=== PATIENT | male | born 1965 | race Caucasian/White ===

== ENCOUNTER 2018-02-15 08:20 | Inpatient (IN) | payer BC ==
[~2018-02-15] VITALS: Ht 175.3 cm; Wt 97.5 kg
--- NOTE | ~2018-02-15 | PROC ---
[address] [address] PROCEDURE REPORT Name: RADHA GONZALEZ Room: [address] ADM IN .R.#: [id number] Admission: 02/15/18 Attend Phys: Monico Chery MD Discharge: Date of : 61 Report #: [id number] THIS REPORT FOR: //name// For GI report, please see the Provation report in Perceptive 7 content. By: 1053Medical Records Staff BRENDON /PATSY
[~2018-02-15 08:20] MED LIST: AZITHROMYCIN 2250 MG PO; CEFUROXIME500 MG PO; NORCO 5-325 TA1 EACH PO; QUINAPRIL 20 MG20 MG PO; QUINAPRIL-HCTZ1 EAC1 PO
[2018-02-15 08:34] VITALS: BP 152/84
[2018-02-15] MEDS ORDERED: LYRICA 75 MG CA75 MG PO (08:36)
[2018-02-15 08:54] LABS: URINE BILIRUBIN NEGATIVE (Negative); URINE BLOOD NEGATIVE (Negative); URINE CLARITY CLEAR; URINE COLOR YELLOW; URINE GLUCOSE-RANDOM NEGATIVE (Negative); URINE KETONES NEGATIVE (Negative); URINE LEUKOCYTES-REFLEX NEGATIVE (Negative); URINE NITRITE-REFLEX NEGATIVE (Negative); URINE PROTEIN NEGATIVE (Negative); URINE SPECIFIC GRAVITY 1.015 (1.005-1.030); URINE UROBILINOGEN 0.2 E.U./dl (0.2-1.0)
[2018-02-15 09:04] LABS: ABSOLUTE EOSINOPHILS 0.1 thou/uL (0.0-0.7); ABSOLUTE LYMPHOCYTES 1.1 thou/uL (0.8-5.3); ABSOLUTE MONOCYTES 0.4 thou/uL (0.0-1.2); ABSOLUTE NEUTROPHILS 3.8 thou/uL (1.6-8.1); BASOPHILS 0.3 %; EOSINOPHILS 1.6 %; HEMATOCRIT 44.1 % (42.0-52.0); LYMPHOCYTES 20.8 %; MCH 28.9 pg (26.0-34.0); MCHC 34.1 g/dL (28.0-37.0); MCV 84.7 fL (80.0-100.0); MONOCYTES 7.9 %; NUCLEATED RBCS 0 /100WBC; PLATELET COUNT* 161 thou/uL (150-400); POLYS 69.4 %; RDW-CV 14.8 % (10.5-14.5); WBC 5.4 thou/uL (4.0-11.0)
[2018-02-15 09:12] LABS: ANION GAP 9 mmol/L (7-16); BUN 18 mg/dL (7-18); CALCIUM 8.8 mg/dL (8.5-10.1); CHLORIDE 102 mmol/L (98-107); CO2 28 mmol/L (21-32); GLUCOSE 110 mg/dL (70-99); POTASSIUM 3.7 mmol/L (3.5-5.1); SODIUM 139 mmol/L (136-145)
[2018-02-15 09:19] LABS: ALKALINE PHOSPHATASE 94 U/L (46-116); LIPASE 381 U/L (73-393); SGOT 35 U/L (15-37); SGPT 63 U/L (30-65); TOTAL BILIRUBIN 0.4 mg/dL (<0.1-1.0); TOTAL PROTEIN 7.5 g/dL (6.4-8.2); TROPONIN-I LEVEL <0.06 ng/mL (<0.06)
[2018-02-15 10:43] LABS: APTT 20.9 Seconds (25.0-31.3); INR 1.1; PROTIME 10.7 Seconds (9.20-11.50)
[2018-02-15 11:01] VITALS: BP 122/80
[2018-02-15 11:21] VITALS: BP 152/57
--- NOTE | 2018-02-15 11:39 | NUR ---
PATIENT CAME TO THE FLOOR FROM THE ER IN STABLE CONDITION. SOME COMPLAINTS OF PAIN MOSTLY WITH MOVEMENT, SITTING UP. ADMISSION ASSESSMENT DONE, ROOM ORIENTATION DONE AND QUESTIONS ANSWERED FOR PATIENT AND . WILL CONTINUE TO MONITOR.
--- NOTE | 2018-02-15 15:00 | EKG ---
[place] [address] ELECTROCARDIOGRAM REPORT Name: RADHA GONZALEZ Room: [address] ADM IN [facility]#: [id number] Admission: 02/15/18 Attend Phys: Monico Chery MD Discharge: Date of : 61 Report #: [id number] THIS REPORT FOR: //name// [facility] ED Test Date: 2018-02-15 Test Time: 08:54:41 Pat Name: RADHA GONZALEZ Department: Room: [facility] Gender: Crane Operator Cab: Liliam DIALLO : 1965 Requested By: Benja Gomez Order Number: [id number] MD: Brent Shukla Measurements Intervals [place] Rate: 69 P: 22 [place]: 157 QRS: -5 QRSD: 87 T: 5 QT: 394 QTc: 422 Interpretive Statements Sinus rhythm Compared to ECG 02/10/2017 21:12:09 T-wave abnormality no longer present Left ventricular hypertrophy no longer present Electronically Signed On 02-15-2018 15:00:17 CDT by Brent Shukla [email or web address] <ELECTRONICALLY SIGNED> By: Brent Shukla MD, [facility] 02/15/18 1500 [phone] Brent Shukla MD, [facility] /EPI
[2018-02-15 16:03] VITALS: BP 148/63
--- NOTE | 2018-02-15 17:58 | NUR ---
PATIENT HAS BEEN ALERT AND ORIENTED TODAY VERY PLEASANT, UP AD EUGENIA IN ROOM. HAD EGD DONE TODAY AND TOLERATED WELL. VITAL SIGNS HAVE BEEN STABLE ON ROOM AIR, FAMILY HAS BEEN AT BEDSIDE TODAY. CALL LIGHT IS IN REACH WILL CONTINUE TO MONITOR.
[2018-02-15 20:40] VITALS: BP 124/72
[2018-02-16 04:30] LABS: ABSOLUTE EOSINOPHILS 0.1 thou/uL (0.0-0.7); ABSOLUTE LYMPHOCYTES 1.2 thou/uL (0.8-5.3); ABSOLUTE MONOCYTES 0.4 thou/uL (0.0-1.2); ABSOLUTE NEUTROPHILS 2.5 thou/uL (1.6-8.1); BASOPHILS 0.3 %; EOSINOPHILS 2.9 %; HEMATOCRIT 40.8 % (42.0-52.0); LYMPHOCYTES 27.9 %; MCH 29.1 pg (26.0-34.0); MCHC 34.3 g/dL (28.0-37.0); MCV 84.9 fL (80.0-100.0); MPV 7.8 fl. (7.2-11.1); NUCLEATED RBCS 0 /100WBC; PLATELET COUNT* 138 thou/uL (150-400); POLYS 59.9 %; RDW-CV 14.7 % (10.5-14.5); WBC 4.2 thou/uL (4.0-11.0)
[2018-02-16 05:01] LABS: CALCIUM 8.1 mg/dL (8.5-10.1); POTASSIUM 3.5 mmol/L (3.5-5.1)
--- NOTE | 2018-02-16 06:52 | NUR ---
PATIENT ALERT AND ORIENTED X 4. VITALS STABLE. RA. DENIES PAIN AND NAUSEA. FLUIDS INFUSING PER ORDER. SLEPT COMFORTABLY THROUGH THE NIGHT. DENIES ANY NEEDS. HOURLY ROUNDS. NURSING WILL CONTINUE TO MONITOR.
[2018-02-16 07:40] VITALS: BP 126/77
[2018-02-16] MEDS ORDERED: PROTONIX40 M1 PO (09:29)
[2018-02-16 09:31] VITALS: BP 126/77
[2018-02-16 13:52] VITALS: BP 126/77
--- NOTE | 2018-02-16 13:53 | NUR ---
PATIENT IS ALERT AND ORIENTED TODAY VERY PLEASANT. UP AD EUGENIA IN ROOM VITAL SIGNS STABLE ON ROOM AIR, NO COMPLAINTS OF ANY KIND. PATIENT TOERATED DIET WELL TODAY WITH NO COMPLAINTS. BEIG DISCHARGED TO HOME, DISCHARGE INSTRUCTIONS AND PRESCRIPTIONS GIVEN, QUESTIONS ANSWERED FOR PATIENT AND FAMILY. AMBULATED OUT WITH DAUGHTER TO HOME WITH BELONGINGS.
--- NOTE | 2018-02-22 10:06 | PATH ---
[address] [address] PATHOLOGY RPT PROCEDURE Name: RAGHU GONZALEZ Room: [address] IN M.R.#: [id number] Admission: 02/15/18 Date of : 61 Discharge: 02/16/18 Report #: [id number] Path Case #: [id number] [facility] Accession Number: [id number] . 01 Material submitted: . GASTRIC BIOPSY, GASTRITIS . 01 Clinical history: . Gastritis . 02 Diagnosis: Gastric biopsy: - Severe chronic and active gastritis with abundant Helicobacter pylori organisms, negative for granulomas and dysplasia. (FABIANO:jeanne; 02/17/2018) . Special stain: H. pylori immuno QMS/02/17/2018 . 02 Electronically signed: . Travis Lake MD, Pathologist NPI- [id number] . 01 Gross description: . Received in formalin labeled "Raghu Gonzalez, gastric BX," are five segments of power soft tissue measuring 0.6 x 0.5 x 0.3 cm in aggregate dimensions and ranging from 0.2 to 0.4 cm in maximum dimension. The specimen is submitted entirely in cassette A1. ([facility]; 02/16/2018) . XDC/XDC . 02 Pathologist provided ICD-10: K29.50, B96.81 . 02 CPT . 153231, B08098 Performed at: [address], [place] [id number] MD Anibal Castillo MD Phone: [phone] Performed at: 02 [facility] [address], [place], [place] [id number] MD Travis Lake MD Phone: [phone]
--- NOTE | 2018-02-23 12:32 | CON ---
[address] [address] CONSULTATION Name: RADHA GONZALEZ Room: [address]#: [id number] Admission: 02/15/18 Attend Phys: Monico Chery MD Discharge: 02/16/18 Date of : 61 Report #: [id number] THIS REPORT FOR: //name// CC: Monico Torresa Geovany Velazquez DATE OF SERVICE: 02/15/2018 REASON FOR CONSULT: Periumbilical pain and hematemesis. The patient also found to have anemia. HISTORY OF PRESENT ILLNESS: This is a 52-year-old male with history of right hemicolectomy due to a colon cancer, which was diagnosed a little over a year ago. The patient's most recent PET scan in October was negative. He currently complains of 4 days of abdominal pain, which is in the periumbilical region. He also believes that he had vomited blood. He denies hematochezia or melena. PAST MEDICAL HISTORY: Significant for: 1. History of colon cancer, status post right hemicolectomy. 2. Hypertension. 3. Anemia. 4. Neuropathy, associated with chemotherapy. ALLERGIES AND MEDICATIONS: Please refer to hospital [facility]. SOCIAL HISTORY: The patient is , lives at home. Denies tobacco or alcohol use. FAMILY HISTORY: Noncontributory. PHYSICAL EXAMINATION: VITAL SIGNS: Reveals normal vitals. LUNGS: Clear. CARDIOVASCULAR: Regular. ABDOMEN: Soft, tender to palpation in the periumbilical region. Bowel sounds are positive. NEUROLOGIC: The patient is alert, oriented x 3. LABORATORY DATA: Revealed sodium of 139, potassium 3.7, BUN is 18, creatinine 1.0. WBC is 5.4, hemoglobin is 15, platelet is 161. IMAGING: CT of abdomen and pelvis was obtained, which showed no acute finding. ASSESSMENT AND PLAN: The patient with history of colon cancer and negative PET scan in 10/2017. He presents with 4 days of severe [place] [address] CONSULTATION Name: RADHA GONZALEZ Room: [address]#: [id number] Admission: 02/15/18 Attend Phys: Monico Chery MD Discharge: 02/16/18 Date of : 61 Report #: [id number] hematemesis. We will perform an upper endoscopy to further evaluate his symptoms and history of upper gastrointestinal bleed. I will make further recommendation based on findings. The patient is agreeable with plan. <ELECTRONICALLY SIGNED> By: Nacho Mack MD 02/23/18 1232 1349 [id number] Mack MD /nt
== END 2018-02-16 13:50 | disposition home or self-care (01) | DRG 379 ==
LOC: M.ERS 08:20 → M.ORTHSURG 10:30 → M.TBA-ER 10:30 → M.ORTHSURG 11:06
PROVIDERS: Emergency Medicine Emergency Medical Services; ADMIT Internal Medicine
PROC: 0DB68ZX Excision of Stomach, Via Natural or Artificial Opening Endoscopic, Diagnostic (ICD-10-PCS; principal; 2018-02-15)
DX: K29.71 Gastritis, unspecified, with bleeding (principal); I10 Essential (primary) hypertension; E86.0 Dehydration; G62.9 Polyneuropathy, unspecified; R04.0 Epistaxis; Z85.038 Personal history of other malignant neoplasm of large intestine; Z92.21 Personal history of antineoplastic chemotherapy; Z80.0 Family history of malignant neoplasm of digestive organs; Z79.899 Other long term (current) drug therapy; Z90.49 Acquired absence of other specified parts of digestive tract; Z80.42 Family history of malignant neoplasm of prostate

== ENCOUNTER → 2018-03-17 | Outpatient (CLI) | payer BC ==
[~2018-03-17] MED LIST changes: +LYRICA 75 MG CA75 MG PO; +PROTONIX40 M1 PO
== END ==
LOC: M.LAB 04:37
DX: Z01.812 Encounter for preprocedural laboratory examination (principal)

== ENCOUNTER 2018-06-13 19:28 | Emergency (ER) | payer OTHER ==
[~2018-06-13] VITALS: Ht 175.3 cm; Wt 93.0 kg
[2018-06-13 19:45] LABS: URINE BILIRUBIN NEGATIVE (Negative); URINE BLOOD NEGATIVE (Negative); URINE CLARITY CLEAR; URINE COLOR YELLOW; URINE GLUCOSE-RANDOM NEGATIVE (Negative); URINE KETONES TRACE (Negative); URINE LEUKOCYTES-REFLEX NEGATIVE (Negative); URINE NITRITE-REFLEX NEGATIVE (Negative); URINE PROTEIN TRACE (Negative); URINE UROBILINOGEN 0.2 E.U./dl (0.2-1.0)
[2018-06-13 20:04] LABS: ABSOLUTE EOSINOPHILS 0.2 thou/uL (0.0-0.7); ABSOLUTE LYMPHOCYTES 1.6 thou/uL (0.8-5.3); ABSOLUTE MONOCYTES 0.6 thou/uL (0.0-1.2); ABSOLUTE NEUTROPHILS 3.4 thou/uL (1.6-8.1); BASOPHILS 0.5 %; EOSINOPHILS 2.9 %; HEMOGLOBIN 14.6 gm/dL (14.0-18.0); LYMPHOCYTES 27.3 %; MCH 29.8 pg (26.0-34.0); MCHC 33.9 g/dL (28.0-37.0); MCV 87.8 fL (80.0-100.0); MONOCYTES 9.8 %; MPV 7.7 fl. (7.2-11.1); NUCLEATED RBCS 0 /100WBC; PLATELET COUNT* 151 thou/uL (150-400); POLYS 59.5 %; RDW-CV 13.5 % (10.5-14.5); WBC 5.7 thou/uL (4.0-11.0)
[2018-06-13 20:13] LABS: CALCIUM 8.9 mg/dL (8.5-10.1); POTASSIUM 3.6 mmol/L (3.5-5.1)
[2018-06-13 20:17] LABS: ALBUMIN 3.8 g/dL (3.4-5.0); TOTAL BILIRUBIN 0.3 mg/dL (<0.1-1.0); TOTAL PROTEIN 6.9 g/dL (6.4-8.2)
[2018-06-13] MEDS ORDERED: BENTYL 20 MG TA20 M1 PO (21:10)
[2018-06-13 21:28] VITALS: BP 141/83
== END 2018-06-13 21:30 | disposition home or self-care (01) ==
LOC: M.ERS 19:28
PROVIDERS: Nurse Practitioner Family
DX: R10.33 Periumbilical pain (principal); I10 Essential (primary) hypertension; G62.9 Polyneuropathy, unspecified; Z85.038 Personal history of other malignant neoplasm of large intestine; Z86.2 Personal history of diseases of the blood and blood-forming organs and certain disorders involving the immune mechanism

== ENCOUNTER 2018-07-20 10:19 | Inpatient (IN) | payer OTHER ==
[~2018-07-20] VITALS: Ht 175.3 cm; Wt 95.3 kg
[~2018-07-20 10:19] MED LIST changes: +BENTYL 20 MG TA20 M1 PO
[2018-07-20 10:24] VITALS: BP 158/110
[2018-07-20] MEDS ORDERED: XIFAXAN550 M1 PO (10:26)
[2018-07-20] MEDS ORDERED: PROTONIX40 M1 PO (10:26)
[2018-07-20 11:45] LABS: ABSOLUTE EOSINOPHILS 0.2 thou/uL (0.0-0.7); ABSOLUTE MONOCYTES 0.4 thou/uL (0.0-1.2); ABSOLUTE NEUTROPHILS 3.1 thou/uL (1.6-8.1); BASOPHILS 0.5 %; EOSINOPHILS 4.7 %; HEMATOCRIT 42.8 % (42.0-52.0); LYMPHOCYTES 22.1 %; MCH 30.2 pg (26.0-34.0); MCHC 35.1 g/dL (28.0-37.0); MCV 86.2 fL (80.0-100.0); MONOCYTES 7.9 %; MPV 7.6 fl. (7.2-11.1); NUCLEATED RBCS 0 /100WBC; PLATELET COUNT* 147 thou/uL (150-400); POLYS 64.8 %; RBC 4.96 mil/uL (4.50-6.00); RDW-CV 12.8 % (10.5-14.5); WBC 4.7 thou/uL (4.0-11.0)
[2018-07-20 11:57] LABS: ANION GAP 8 mmol/L (7-16); BUN 16 mg/dL (7-18); CHLORIDE 101 mmol/L (98-107); CO2 29 mmol/L (21-32); CREATININE 0.8 mg/dL (0.6-1.3); GLUCOSE 98 mg/dL (70-99); POTASSIUM 3.7 mmol/L (3.5-5.1); SODIUM 138 mmol/L (136-145)
[2018-07-20 12:04] LABS: ALBUMIN 3.9 g/dL (3.4-5.0); ALKALINE PHOSPHATASE 98 U/L (46-116); SGOT 43 U/L (15-37); SGPT 85 U/L (30-65); TOTAL BILIRUBIN 0.7 mg/dL (<0.1-1.0); TOTAL PROTEIN 7.2 g/dL (6.4-8.2); TROPONIN-I LEVEL <0.06 ng/mL (<0.06)
[2018-07-20 16:37] VITALS: BP 123/76
--- NOTE | 2018-07-20 17:03 | EKG ---
[place] [address] ELECTROCARDIOGRAM REPORT Name: RADHA GONZALEZ Room: [address] ADM IN [facility]#: [id number] Admission: 07/20/18 Attend Phys: Lauren Erazo Discharge: Date of : 61 Report #: [id number] THIS REPORT FOR: //name// [facility] ED Test Date: 2018-07-20 Test Time: 11:37:07 Pat Name: RADHA GONZALEZ Department: Room: [facility] Gender: Medical Imaging Specialist: PIETRO : 1965 Requested By: Mamie Westbrook Order Number: [id number] MD: Pierre Maravilla Measurements Intervals [place] Rate: 65 P: 32 NM: 196 QRS: -13 QRSD: 93 T: 1 QT: 402 QTc: 418 Interpretive Statements Sinus rhythm Compared to ECG 02/15/2018 08:54:41 No significant changes Electronically Signed On 07-20-2018 17:03:07 MINING ENGINEER by Pierre Maravilla [email or web address] <ELECTRONICALLY SIGNED> By: Pierre Maravilla MD, [facility] 07/20/18 1703 1137 1137 Pierre Maravilla MD, FAC /EPI
[2018-07-20 18:00] VITALS: BP 123/81
--- NOTE | 2018-07-20 18:00 | NUR ---
PATIENT ARRIVED TO UNIT AT 1700. ALERT AND ORIENTED X4. UP AD EUGENIA IN ROOM. IV IS PATENT AND INFUSING. REQUESTING PAIN MEDICATION UPON ARRIVAL TO UNIT, ORDERS RECIEVED AND ADMINISTERED. DENIES NAUSEA. NPO AT THIS TIME. VSS ON ROOM AIR. PATIENT HAS BEEN ORIENTED TO ROOM. CALL LIGHT IS WITHIN REACH. NURSING WILL CONTINUE TO MONITOR.
[2018-07-20 20:09] LABS: ABSOLUTE EOSINOPHILS 0.3 thou/uL (0.0-0.7); ABSOLUTE LYMPHOCYTES 1.3 thou/uL (0.8-5.3); ABSOLUTE MONOCYTES 0.4 thou/uL (0.0-1.2); ABSOLUTE NEUTROPHILS 3.5 thou/uL (1.6-8.1); BASOPHILS 0.4 %; EOSINOPHILS 4.6 %; HEMATOCRIT 43.4 % (42.0-52.0); HEMOGLOBIN 15.2 gm/dL (14.0-18.0); LYMPHOCYTES 23.7 %; MCHC 34.9 g/dL (28.0-37.0); MCV 86.1 fL (80.0-100.0); MPV 7.6 fl. (7.2-11.1); NUCLEATED RBCS 0 /100WBC; PLATELET COUNT* 152 thou/uL (150-400); POLYS 63.3 %; RBC 5.05 mil/uL (4.50-6.00); RDW-CV 13.3 % (10.5-14.5); WBC 5.6 thou/uL (4.0-11.0)
[2018-07-20 22:27] VITALS: BP 131/79
[2018-07-21 04:41] LABS: ABSOLUTE EOSINOPHILS 0.2 thou/uL (0.0-0.7); ABSOLUTE LYMPHOCYTES 1.3 thou/uL (0.8-5.3); ABSOLUTE MONOCYTES 0.4 thou/uL (0.0-1.2); ABSOLUTE NEUTROPHILS 2.8 thou/uL (1.6-8.1); BASOPHILS 0.4 %; HEMATOCRIT 41.7 % (42.0-52.0); HEMOGLOBIN 14.5 gm/dL (14.0-18.0); LYMPHOCYTES 26.7 %; MCH 30.2 pg (26.0-34.0); MCHC 34.9 g/dL (28.0-37.0); MCV 86.6 fL (80.0-100.0); MONOCYTES 8.7 %; MPV 7.8 fl. (7.2-11.1); NUCLEATED RBCS 0 /100WBC; PLATELET COUNT* 139 thou/uL (150-400); POLYS 59.2 %; RBC 4.81 mil/uL (4.50-6.00); RDW-CV 13.1 % (10.5-14.5); WBC 4.7 thou/uL (4.0-11.0)
--- NOTE | 2018-07-21 04:53 | NUR ---
ASSUMED CARE OF PT AT 1900 PT ALERT AND ORIENTED X 4 VS AND ASSESSMENT STABLE. PT HAD PAIN MEDS TWICE THEN SLEPT. WILL CONTINUE PLAN OF CARE.
[2018-07-21 04:57] LABS: CALCIUM 8.6 mg/dL (8.5-10.1); POTASSIUM 3.7 mmol/L (3.5-5.1)
[2018-07-21 08:30] VITALS: BP 132/74
[2018-07-21 11:33] LABS: URINE BILIRUBIN NEGATIVE (Negative); URINE BLOOD NEGATIVE (Negative); URINE CLARITY CLEAR; URINE COLOR YELLOW; URINE GLUCOSE-RANDOM NEGATIVE (Negative); URINE KETONES NEGATIVE (Negative); URINE LEUKOCYTES-REFLEX NEGATIVE (Negative); URINE NITRITE-REFLEX NEGATIVE (Negative); URINE PROTEIN NEGATIVE (Negative); URINE UROBILINOGEN 0.2 E.U./dl (0.2-1.0)
[2018-07-21] MEDS ORDERED: OXYCODONE HCL 55 MG PO (15:22)
[2018-07-21] MEDS ORDERED: COLACE100 MG PO (16:14)
[2018-07-21] MEDS ORDERED: MIRALAX17 GM PO (16:17)
--- NOTE | 2018-07-21 17:24 | NUR ---
PT UP IN ROOM AND HALLS WITH STEADY GAIT. PAIN CONTROLLED WITH TYLENOL. PT TOLERATING PO WELL. ONCOLOGY PLAN TO F/U OUTPT. PLAN TO DC HOME IN AM
[2018-07-21 20:00] VITALS: BP 122/75
--- NOTE | 2018-07-22 04:29 | NUR ---
ASSUMED CARE OF PT AT 1900 PT ALERT AND ORIENTED X4 VS AND ASSESSMENT STABLE. PT HAD PAIN MEDS ONCE THEN SLEPT THROUGH THE NIGHT. WILL CONTINUE PLAN OF CARE.
[2018-07-22 07:45] VITALS: BP 127/85
[2018-07-22] MEDS ORDERED: TYLENOL EXTRA500 MG PO (11:30)
[2018-07-22 11:49] VITALS: BP 127/85
[2018-07-22 11:55] VITALS: BP 127/85
--- NOTE | 2018-07-22 12:57 | NUR ---
PATIENT LEFT UNIT AT 1230. ALERT AND ORIENTED X4. UP AD EUGENIA IN ROOM. IV DC'D. PAIN BEING MANAGED WITH PO PAIN MEDICATION. DENIES NAUSEA. ALL PERSONAL ITEMS LEFT WITH PATIENT. DISCHARGE INSTRUCTIONS, PRESCRIPTIONS, NEW MEDICATION INFORMATIONS, AND FOLLOW UP INFORMATION SENT WITH PATIENT. VSS ON ROOM AIR. HOURLY ROUNDS HAVE BEEN MAINTAINED THROUGHOUT SHIFT. LEFT WITH DAUGHTER VIA CAR.
[2018-07-22 13:15] VITALS: BP 127/85
== END 2018-07-22 12:30 | disposition home or self-care (01) | DRG 389 ==
LOC: M.ERS 10:19 → M.TBA-ER 14:46 → M.ORTHSURG 14:46
PROVIDERS: Physician Assistant; Surgery; ADMIT Internal Medicine
DX: K56.699 Other intestinal obstruction unspecified as to partial versus complete obstruction (principal); J98.11 Atelectasis; I10 Essential (primary) hypertension; G62.9 Polyneuropathy, unspecified; K59.00 Constipation, unspecified; Z85.038 Personal history of other malignant neoplasm of large intestine; Z92.21 Personal history of antineoplastic chemotherapy; Z79.899 Other long term (current) drug therapy; Z90.49 Acquired absence of other specified parts of digestive tract; Z80.0 Family history of malignant neoplasm of digestive organs; Z80.42 Family history of malignant neoplasm of prostate; Z86.718 Personal history of other venous thrombosis and embolism; Z82.0 Family history of epilepsy and other diseases of the nervous system; Z81.8 Family history of other mental and behavioral disorders; Z83.79 Family history of other diseases of the digestive system; Z28.21 Immunization not carried out because of patient refusal

== ENCOUNTER 2018-12-07 07:05 | Observation (INO) | payer OTHER ==
[~2018-12-07] VITALS: Ht 175.3 cm; Wt 99.8 kg
--- NOTE | ~2018-12-07 | H ---
[address] [address] HISTORY AND PHYSICAL Name: RADHA GONZALEZ Room: [address] [place]#: [id number] Admission: 12/07/18 Attend Phys: Janna Madrigal DO Discharge: 12/08/18 Date of : 61 Report #: [id number] THIS REPORT FOR: //name// Please refer to the History and Physical performed in the physician's office. By: 1544Medical Records Staff JARRED /PATSY
[~2018-12-07 07:05] MED LIST changes: +COLACE100 MG PO; +MIRALAX17 GM PO; +OXYCODONE HCL 55 MG PO; +TYLENOL EXTRA500 MG PO; +XIFAXAN550 M1 PO
[2018-12-07 07:30] LABS: HEMATOCRIT 39.5 % (42.0-52.0); HEMOGLOBIN 13.4 gm/dL (14.0-18.0); MCH 31.4 pg (26.0-34.0); MCV 92.3 fL (80.0-100.0); MPV 7.3 fl. (7.2-11.1); RBC 4.28 mil/uL (4.50-6.00); RDW-CV 16.4 % (10.5-14.5); WBC 2.6 thou/uL (4.0-11.0)
[2018-12-07 07:38] LABS: CALCIUM 8.5 mg/dL (8.5-10.1); POTASSIUM 3.7 mmol/L (3.5-5.1)
[2018-12-07 07:39] VITALS: BP 140/77
[2018-12-07 14:42] VITALS: BP 125/83
[2018-12-07 17:38] VITALS: BP 121/81
[2018-12-07 20:30] VITALS: BP 133/81
[2018-12-08] VITALS: BP 120/54
[2018-12-08 04:05] VITALS: BP 125/69
[2018-12-08 05:13] LABS: HEMATOCRIT 36.7 % (42.0-52.0); HEMOGLOBIN 12.6 gm/dL (14.0-18.0); MCHC 34.3 g/dL (28.0-37.0); MCV 93.4 fL (80.0-100.0); MPV 8.3 fl. (7.2-11.1); RBC 3.93 mil/uL (4.50-6.00); RDW-CV 16.3 % (10.5-14.5); WBC 4.5 thou/uL (4.0-11.0)
[2018-12-08 05:25] LABS: CALCIUM 8.5 mg/dL (8.5-10.1)
[2018-12-08] MEDS ORDERED: OXYCODONE HCL 55 MG PO (12:33)
[2018-12-08] MEDS ORDERED: MIRALAX17 GM PO (12:38)
[2018-12-08] MEDS ORDERED: COLACE100 MG PO (12:38)
[2018-12-08 12:40] VITALS: BP 125/69
[2018-12-08 14:52] VITALS: BP 125/69
--- NOTE | 2018-12-09 15:05 | PATH ---
[address] [address] PATHOLOGY RPT PROCEDURE Name: CARLOSRAGHUKRYSTYNA DRIVER Room: [address] [place]#: [id number] Admission: 12/07/18 Date of : 61 Discharge: 12/08/18 Report #: [id number] Path Case #: [id number] L[facility] Accession Number: [id number] . 01 Material submitted: . abdomen - MESENTERIC MASS . 01 Clinical history: . Colon adenocarcinoma, malignant neoplasm of ascending colon . 02 Diagnosis: Mesenteric mass: - ADENOCARCINOMA, MODERATELY DIFFERENTIATED, TYPICAL OF COLORECTAL PRIMARY, FORMING A MASS MEASURING 2.4 X 1.8 X 1.7 CM IN FIBROFATTY TISSUE AND INVOLVING AT LEAST ONE OF TWO LYMPH NODES. SEE COMMENT. (FABIANO:[place] 12/09/2018) QTP/12/09/2018 . 02 Comment: This patient had a right colon mass resected in January 2017 which showed moderately differentiated colonic adenocarcinoma with involvement of one of ten pericolic lymph nodes - pT3N1a (UKA14-179), with subsequent six months of chemotherapy. The smaller of the two described masses is a benign lymph node (A1) and the dominant tumor mass is seen to involve at least one lymph node and possibly at least one more (A2 and A3). The tumor mass extensively involves fibrofatty tissue and the inked surfaces appear free of involvement through planes of sections examined. . Reviewed with Dr. Hiro Rodriguez who agrees with the diagnosis. Dr. Madrigal notified at approximately 1430 on 12/09/2108. (FABIANO:[facility] 12/09/2018) . 02 Electronically signed: . Travis Lake MD, Pathologist NPI- [id number] . 01 Gross description: . The specimen is received in formalin, labeled "Raghu Gonzalez, mesenteric mass". Received is a segment of bright yellow, slightly firm lobulated tissue measuring 8.6 x 4.7 x 3.2 cm in greatest dimensions. The surgical margin is inked. Sectioning reveals two well demarcated white masses measuring 0.7 x 0.5 x 0.5 and 2.4 x 1.8 x 1.7 cm in greatest dimensions, both of which grossly approaches the inked margin. The smaller mass is submitted entirely in cassette A1. Fruit Inspector section of the larger mass are submitted in cassettes A2 through A4. ([facility]; 12/08/2018) QAC/QAC . [address] [place] [address] PATHOLOGY RPT PROCEDURE Name: RAGHU GONZALEZ Room: [address] [place]#: [id number] Admission: 12/07/18 Date of : 61 Discharge: 12/08/18 Report #: [id number] Path Case #: [id number] Pathologist provided ICD-10: C48.1 . 02 CPT . 627875 Specimen Comment: A courtesy copy of this report has been sent to Specimen Comment: [phone], . Specimen Comment: Report sent to / DR DON Performed at: 01 [facility] [address], [place], [place] [id number] MD Carlos Castillo MD Phone: [phone] Performed at: 02 [facility] [address], [place] [id number] MD Travis Lake MD Phone: [phone]
--- NOTE | 2018-12-10 13:12 | OP ---
[address] [address] OPERATIVE REPORT Name: CARLOSRADHA DRIVER Room: [address] [place] Coron[place]#: [id number] Admission: 12/07/18 Attend Phys: Janna Madrigal DO Discharge: 12/08/18 Date of : 61 Report #: [id number] THIS REPORT FOR: //name// CC: Janna Phillips DATE OF SERVICE: 12/07/2018 PREPROCEDURE DIAGNOSIS: Mesenteric mass near previous anastomosis. POSTPROCEDURE DIAGNOSIS: Mesenteric mass near previous anastomosis. FINDINGS: Multiple dense adhesions between the omentum and the anterior abdominal wall. There were adhesions in the right upper quadrant near our previous colon resection. Anastomosis was found to be patent. There was a stump of old mesentery in the right upper quadrant, with a clearly defined firm mass of about 2.5 cm. This was away from our anastomosis. SURGEON: Janna Madrigal DO. MILITARY TECHNOLOGY SPECIALIST: Boaz Pickard, PGY-2. PROCEDURES PERFORMED: Diagnostic laparoscopy, lysis of adhesions greater than 30 minutes and resection of mesenteric mass. ANESTHESIA: General endotracheal and local. ESTIMATED BLOOD LOSS: 30 mL. DRAINS: None. SPECIMENS: Mesenteric mass. COMPLICATIONS: None. CONDITION: Stable. DISPOSITION: PACU to the floor. 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 He underwent a laparoscopic right cecectomy and chemotherapy and had been doing well. Recently, he had acute-onset right lower quadrant abdominal pain and CT scan and PET scan identified an approximately 3-cm mass near our previous anastomosis. He has been undergoing chemotherapy and the mass has shrunk. He was then referred back to me from his oncologist for resection of [place] [address] OPERATIVE REPORT Name: RADHA GONZALEZ Room: [address] [place]#: [id number] Admission: 12/07/18 Attend Phys: Janna Madrigal DO Discharge: 12/08/18 Date of : 61 Report #: [id number] consented for laparoscopy, possible right hemicolectomy and possible ostomy. Risks discussed included bleeding, infection, pain, scar formation, injury to bowel or bladder, hernia at the incision sites, need for further surgery and risks of general anesthesia. The patient understood these risks and elected to proceed. DESCRIPTION OF PROCEDURE: The patient was brought to the operating room. He was laid supine on the operating room table. SCDs were placed on bilateral lower extremities. Ancef and Flagyl were given in the perioperative period. General endotracheal anesthesia was induced by Anesthesia without difficulty. Abdomen was prepped and draped in a standard sterile fashion. Timeout was performed to verify patient and procedure. A 10 mL of 0.5% Marcaine were injected in the supraumbilical area at the site of his previous incision. Cautery was used for hemostasis. S retractors were used to visualize the fascia. Fascia was grasped and elevated between 2 Kochers. Fascia was incised using cautery. Peritoneum was bluntly entered using a Geri clamp. Finger was introduced into the abdomen to assure that there were no nba-incisional adhesions. Unfortunately, multiple nba-incisional adhesions were identified between the anterior abdominal wall and the omentum. Using very gentle blunt dissection, I was able to create a window so that the Zaki trocar could be introduced. Abdomen was then insufflated. Camera was introduced and I did have a clear window into the pelvis. An 11-mm trocar was introduced in the left lower quadrant as well as a 5-mm trocar in the left upper quadrant, both under direct visualization. Then, using a combination of blunt and cautery dissection, the adhesions were all taken down. There was one area of bleeding in the omentum, which was easily controlled with LigaSure. I then turned my attention to the right upper quadrant. One additional 5-mm trocar was introduced in the lower midline area. The omentum was gently flipped over the liver. There were multiple adhesions in the right upper quadrant, between the omentum and the colon. These were taken down with a combination of LigaSure and cautery dissection until the transverse colon could be identified. Transverse colon was then traced back to the hepatic flexure, where anastomosis was sitting. Small bowel was also traced to where our anastomosis was located. There were multiple dense adhesions still in this area, from the omentum down to our anastomosis. The omentum was carefully peeled away from our anastomosis using the LigaSure. At this point, the anastomosis was completely free. It was at this point that I identified where our previous mesenteric stump from the cecum was located. It was obvious in this area that there was a large firm mass, it was easily palpable with my laparoscopic instruments. This was sitting just medial to the anastomosis. It was obvious that this was the mass that had been identified on CT and PET scan. The mass was gently elevated and was dissected free from the surrounding tissue using a combination of LigaSure and cautery dissection. Care was taken near the site of our anastomosis to avoid any bowel injury. The mesenteric mass was then placed within an EndoCatch bag. Our Zaki trocar was removed and the EndoCatch bag was removed with specimen [address] [address] OPERATIVE REPORT Name: RADHA GONZALEZ Room: [address] [place]#: [id number] Admission: 12/07/18 Attend Phys: Janna Madrigal DO Discharge: 12/08/18 Date of : 61 Report #: [id number] intact. Specimen was taken to a back table and was incised using a knife. There was a large firm, circular, pale colored mass identified within the mesentery of approximately 2.5 cm. This was then handed off for permanent pathology. Zaki trocar and camera were re-introduced into the abdomen. The entirety of the abdomen was inspected. No further areas of bleeding were identified. My anastomosis was carefully inspected and appeared to be intact. There was no bowel injury identified. The anastomosis was allowed to fall back into its previous position. Omentum was brought down to cover the anastomosis and the abdomen. Our trocars were all then removed under direct visualization. There was no bleeding noted from the peritoneum. Abdomen was then completely desufflated and Zaki trocar was removed. Kochers were then placed on the fascia of our supraumbilical port. Previously placed 0 Vicryl stitches were removed and a #0 Vicryl stitch was placed in a metmzb-he-ewpdr fashion, with excellent approximation of the fascia. All wounds were then closed in a layered fashion using deep and superficial stitches of 3-0 Vicryl in an inverted interrupted fashion. Skin wounds were all closed with 4-0 Monocryl. A total of 30 mL of 0.5% Marcaine were used to anesthetize the wounds. Wounds were then cleansed and covered with Mastisol, Steri-Strips, 4 x 4's and Tegaderm. The patient was then allowed to awaken from anesthesia, was extubated and transported to the recovery room with no further difficulties. Counts were correct x 2 at the conclusion of the case. Binder was placed in the operating room. <ELECTRONICALLY SIGNED> By: Janna Madrigal DO 12/10/18 1312 1053 1202Cbrian Madrigal DO /nt
== END 2018-12-08 13:20 | disposition home or self-care (01) ==
LOC: M.SUR 07:05 → M.ORTHSURG 11:00 → M.TBA 11:00 → M.SUR 11:21 → M.ORTHSURG 12:02
PROVIDERS: ADMIT Surgery
DX: C18.9 Malignant neoplasm of colon, unspecified (principal); R19.07 Generalized intra-abdominal and pelvic swelling, mass and lump; K66.0 Peritoneal adhesions (postprocedural) (postinfection); I10 Essential (primary) hypertension; Z85.038 Personal history of other malignant neoplasm of large intestine; Z90.49 Acquired absence of other specified parts of digestive tract; Z79.899 Other long term (current) drug therapy

== ENCOUNTER → 2019-04-26 | Day surgery (SDC) | payer OTHER ==
[2019-04-26 07:03] LABS: HEMATOCRIT 40.4 % (42.0-52.0); MCH 31.2 pg (26.0-34.0); MCHC 34.6 g/dL (28.0-37.0); MCV 90.2 fL (80.0-100.0); MPV 8.1 fl. (7.2-11.1); RBC 4.48 mil/uL (4.50-6.00); RDW-CV 15.7 % (10.5-14.5); WBC 4.1 thou/uL (4.0-11.0)
[2019-04-26 07:20] LABS: CALCIUM 8.8 mg/dL (8.5-10.1); CREATININE 0.8 mg/dL (0.6-1.3); POTASSIUM 3.7 mmol/L (3.5-5.1)
[2019-04-26 07:23] LABS: ALBUMIN 3.5 g/dL (3.4-5.0); TOTAL BILIRUBIN 0.7 mg/dL (<0.1-1.0); TOTAL PROTEIN 6.6 g/dL (6.4-8.2)
--- NOTE | 2019-04-26 13:36 | EKG ---
[place] [address] ELECTROCARDIOGRAM REPORT Name: CARLOSRADHA Room: [facility]#: [id number] Admission: 04/26/19 Attend Phys: Janna Madrigal DO Discharge: Date of : 61 Report #: [id number] THIS REPORT FOR: //name// [facility] Test Date: 2019-04-26 Test Time: 07:24:12 Pat Name: RADHA GONZALEZ Department: Room: Gender: M Pastry Assistant: : 1965 Requested By: Janna Madrigal Order Number: [id number] Reading MD: Pierre Maravilla Measurements Intervals [place] Rate: 62 P: 29 HI: 155 QRS: 6 QRSD: 91 T: 4 QT: 426 QTc: 433 Interpretive Statements Sinus rhythm Compared to ECG 07/20/2018 11:37:07 No significant changes Electronically Signed On 04-26-2019 13:36:00 CDT by Pierre Maravilla [email or web address] <ELECTRONICALLY SIGNED> By: Pierre Maravilla MD, [facility] 04/26/19 1336 0724 0724 Pierre Maravilla MD, [facility] /EPI
--- NOTE | 2019-04-29 18:25 | OP ---
[address] [address] OPERATIVE REPORT Name: RADHA GONZALEZ Room: [facility]..#: [id number] Admission: 04/26/19 Attend Phys: Janna Madrigal DO Discharge: Date of : 61 Report #: [id number] THIS REPORT FOR: //name// CC: Janna Boo DO DICTATED BY: Matheus Roldan DO DATE OF SERVICE: 04/26/2019 PREOPERATIVE DIAGNOSIS: Incisional and umbilical hernia. POSTOPERATIVE DIAGNOSIS: Incisional and umbilical hernia. SURGEON: Janna Madrigal DO RAG CUTTING MACHINE TENDER: Teofilo Roldan DO, PGY-5, and Juan David Enriquez DO, PGY-3 OPERATIONS PERFORMED: 1. Open incisional hernia repair with an [address] rampart mesh. 2. Primary umbilical hernia repair. ANESTHESIA: General and local. ESTIMATED BLOOD LOSS: 10 mL. SPECIMENS: None. COMPLICATIONS: None. DESCRIPTION OF PROCEDURE: After the appropriate consents were obtained, the patient was taken to the operating room, laid in the supine position. He had SCDs placed on his bilateral lower extremities and safety strap placed across his lap. He had all lines placed by Anesthesia. The patient was sedated and intubated by Anesthesia without difficulty. His abdomen was then exposed, prepped and draped in a standard sterile fashion. A timeout was performed to correctly identify the patient and procedure. He was given perioperative antibiotics prior to incision. We started by using some 0.5% Marcaine at the supraumbilical site of his incisional hernia. We then elected to perform an elliptical incision using #10 blade scalpel to remove his old scar. This was carried down through the dermis and it was excised completely. We then continued our dissection through the subcutaneous tissue to encounter the anterior abdominal wall fascia. The patient had a large incisional hernia and the fascia was surrounding it circumferentially. We [place] [address] OPERATIVE REPORT Name: CARLOSRADHAKRYSTYNA DRIVER Room: [facility]#: [id number] Admission: 04/26/19 Attend Phys: Janna Madrigal DO Discharge: Date of : 61 Report #: [id number] this was excised as well. We did some dissection along the circumference of the hernia defect in order to free up the anterior abdominal wall adhesions. We did this using blunt dissection as well as electrocautery. There was extensive amount of scar tissue present, particularly on the superficial aspect of the hernia along the dermis and surrounding the fascia. We did release some of the subcutaneous tissue and along the fascia in order to help achieve better approximation. This was done using electrocautery. We were able to palpate an umbilical hernia, which appeared to be less than 1 cm in size. We elected to reapproximate this hernia using inverted interrupted 0 Prolene stitches. This was done so posteriorly. We then measured our incisional hernia defect, which appeared to be 5 x 4.5 cm, so we elected to use an [address] rampart mesh. The mesh was deployed within the hernia defect and it was tacked down in 4 quadrants using a 0 Prolene stitch. We then tacked down further in between the four quadrants in order to help situate with the mesh securely against the anterior abdominal wall. Once this was complete and we could not feel any defects within the abdominal wall between the mesh, we decided to reapproximate the fascia overlying the mesh. We tried horizontally as well as vertically and it appeared that the fascia reapproximated better horizontally. We then reapproximated the fascia using the same 0 Prolene stitch in a udzovp-xe-plkqx fashion. Multiple dpqgpm-zo-lwkmfe were placed within the fascia, which achieved adequate reapproximation over the mesh. Once we were happy with our hernia repair, we then injected the fascia as well as subcutaneous tissue using 0.5% Marcaine. The subcutaneous tissue was closed using a 3-0 Vicryl stitch in an inverted interrupted fashion. The skin was closed using a 4-0 Monocryl stitch in a running subcuticular fashion. The patient's abdomen was then cleaned and dried adequately. The skin was further injected using the remainder of the 0.5% Marcaine. We placed Mastisol, Steri-Strips, gauze and a sterile Tegaderm OpSite over the incision. All counts were correct x 2 at the end of the procedure. Dr. Madrigal was present and scrubbed throughout the entire procedure. The patient was allowed to awaken and was subsequently extubated in the OR without difficulty and he will be transferred to the PACU for further recovery and likely discharged home later today. <ELECTRONICALLY SIGNED> By: Janna Madrigal DO 04/29/19 1825 [id number] 1024Chdev Madrigal DO /nt
== END | disposition home or self-care (01) ==
LOC: M.SUR 05:56
PROVIDERS: Surgery
DX: K43.2 Incisional hernia without obstruction or gangrene (principal); K42.9 Umbilical hernia without obstruction or gangrene; Z79.899 Other long term (current) drug therapy; Z98.890 Other specified postprocedural states

== ENCOUNTER → 2019-07-15 | Outpatient (CLI) | payer OTHER ==
[~2019-07-15] VITALS: Ht 175.3 cm; Wt 104.3 kg
[2019-07-15 09:01] VITALS: BP 131/88
[2019-07-15 09:08] LABS: HEMATOCRIT 42.9 % (42.0-52.0); HEMOGLOBIN 14.9 gm/dL (14.0-18.0); MCH 30.1 pg (26.0-34.0); MCHC 34.7 g/dL (28.0-37.0); MCV 86.8 fL (80.0-100.0); MPV 7.4 fl. (7.2-11.1); RBC 4.94 mil/uL (4.50-6.00); WBC 3.5 thou/uL (4.0-11.0)
[2019-07-15 09:20] LABS: APTT 29.8 Seconds (25.0-31.3); INR 1.1; PROTIME 11.6 Seconds (9.20-11.50)
[2019-07-15 10:37] LABS: ABSOLUTE EOSINOPHILS 0.1 thou/uL (0.0-0.7); ABSOLUTE LYMPHOCYTES 0.9 thou/uL (0.8-5.3); ABSOLUTE MONOCYTES 0.3 thou/uL (0.0-1.2); BASOPHILS 0.4 %; EOSINOPHILS 2.4 %; HEMOGLOBIN 14.5 gm/dL (14.0-18.0); LYMPHOCYTES 27.3 %; MCHC 34.6 g/dL (28.0-37.0); MCV 86.7 fL (80.0-100.0); MONOCYTES 10.3 %; MPV 8.1 fl. (7.2-11.1); NUCLEATED RBCS 0 /100WBC; PLATELET COUNT* 115 thou/uL (150-400); POLYS 59.6 %; RBC 4.84 mil/uL (4.50-6.00); RDW-CV 14.1 % (10.5-14.5); WBC 3.4 thou/uL (4.0-11.0)
[2019-07-15 10:53] LABS: ALBUMIN 3.6 g/dL (3.4-5.0); ALKALINE PHOSPHATASE 67 U/L (46-116); ANION GAP 8 mmol/L (7-16); BUN 13 mg/dL (7-18); CHLORIDE 103 mmol/L (98-107); CHOLESTEROL 177 mg/dL (<200); CO2 30 mmol/L (21-32); CREATININE 0.8 mg/dL (0.6-1.3); GLUCOSE 110 mg/dL (70-99); HDL CHOLESTEROL 54 mg/dL (>40); LDL CHOLESTEROL 104 mg/dL (<100); POTASSIUM 3.8 mmol/L (3.5-5.1); SERUM ASSESSMENT Clear; SGOT 102 U/L (15-37); SGPT 175 U/L (30-65); SODIUM 141 mmol/L (136-145); TC:HDL 3.3 Ratio (Not establshd); TOTAL BILIRUBIN 0.6 mg/dL (<0.1-1.0); TOTAL PROTEIN 6.7 g/dL (6.4-8.2); TRIGLYCERIDE 97 mg/dL (<150); VLDL 19 mg/dL (<40)
[2019-07-15 11:20] VITALS: BP 139/96
[2019-07-15 11:43] VITALS: BP 132/87
[2019-07-15 12:00] VITALS: BP 142/89
[2019-07-15 18:06] LABS: IgG 835 mg/dL (700-1600); IgM 23 mg/dL (20-172)
[2019-07-16 02:06] LABS: GLYCOHEMOGLOBIN (HGB A1C) 5.4 % (4.8-5.6); HEPATITIS B SURFACE AG Negative (Negative)
[2019-07-18 12:08] LABS: ANA INTERPRETATION Negative (Negative)
[2019-07-18 13:07] LABS: CERULOPLASMIN 19.3 mg/dL (16.0-31.0)
--- NOTE | 2019-07-26 13:08 | PATH ---
[address] [address] PATHOLOGY RPT PROCEDURE Name: RAGHU GONZALEZ Room: [facility] JAVIER Coronado#: [id number] Admission: 07/15/19 Date of : 61 Discharge: Report #: [id number] Path Case #: [id number] [facility] Accession Number: [id number] . 01 Material submitted: . liver - LIVER BIOPSY . 01 Clinical history: . Elevated LFTs, pancytopenia, hepatosplenomegaly . 02 Diagnosis: Liver, core needle biopsy: - Benign liver parenchyma with moderate steatosis (final diagnosis pending consultation with pathologist at the [facility]). . (AGA:jeanne; 07/19/2019) S 07/19/2019 1524 Local . 02 Addendum: . Special studies report received from [address] [address], on case [id number], labeled with their number [id number], dated 07/25/2019. . [facility] Pathology Consultation . Pathology Consult . Interpretation . FINAL DIAGNOSIS Liver, biopsy ([id number]; 07/15/2019): Moderate steatosis with features of steatohepatitis. Moderate pericellular fibrosis in zone 3 (Stage 1b/4), see comment. . COMMENT: The history is that of a 53-year-old male with evidence of splenomegaly, mild pancytopenia, and a prior history of alcohol abuse. Biopsies from the liver showed moderate (40-50%) steatosis in a nonzonal distribution. Occasional ballooned hepatocytes with wellformed Crys-Denk bodies are seen. Moderate spotty lobular inflammation is noted. No significant portal inflammation is seen. Special stains performed at the outside institution are reviewed. Trichrome stain highlights pericellular fibrosis in zone 3. Iron stain shows trace granular staining in hepatocytes. PAS D stain is negative for hyaline globules. . Overall the findings are that of moderate steatosis with steatohepatitis (alcoholic vs. nonalcoholic). While [place] [address] PATHOLOGY RPT PROCEDURE Name: RAGHU GONZALEZ Room: [facility] Coron[place]#: [id number] Admission: 07/15/19 Date of : 61 Discharge: Report #: [id number] Path Case #: [id number] fibrosis, there is no histologic evidence of cirrhosis. . Thank you for sharing this challenging case. Please do not hesitate to contact me with any further questions. . . Material Received A. [id number]: Liver 16 stained slides . Report electronically signed by . Kiley Fraser M.D. [phone] . I verify that I have examined all relevant slides/materials for the specimen(s) and rendered or confirmed the diagnosis. . . . . A complete copy of the report is on file. . Professional services performed by [address] [address]. [facility] [address] [place] [address], [facility] [address] [address]. . (SKM:amchristy 07/25/2019) . AZJ/07/25/2019 Addendum Electronically Signed by Clifford Chatterjee MD, Pathologist . 02 Electronically signed: . Clifford Chatterjee MD, Pathologist NPI- [id number] . 01 Gross description: . The specimen is received in formalin, labeled "Raghu Gonzalez, liver biopsy". Received are two needle cores of orange-power soft tissue ranging in length from 1.0 to 1.7 cm in length by 0.1 cm in diameter. The specimen is submitted entirely in cassette A1 and A2. (CAA; 07/15/2019) QAC/QAC 07/15/2019 1555 Local . 02 Pathologist provided ICD-10: D61.818 . 02 CPT . [id number] [place] [address] PATHOLOGY RPT PROCEDURE Name: RAGHU GONZALEZ Room: [facility] GWEN Ivonne#: [id number] Admission: 07/15/19 Date of : 61 Discharge: Report #: [id number] Path Case #: [id number] Specimen Comment: A courtesy copy of this report has been sent to [phone], [phone] Specimen Comment: [phone] Specimen Comment: Report sent to Specimen Comment: A duplicate report has been generated due to demographic updates. Performed at: 01 [facility] [address] [id number] MD Anibal Castillo MD Phone: [phone] Performed at: 02 [facility] [address] [id number] MD Juan Luis Rizvi MD Phone: [phone]
== END | disposition home or self-care (01) ==
LOC: M.INT 08:10
PROVIDERS: Internal Medicine Gastroenterology; Radiology Diagnostic Radiology
DX: K76.0 Fatty (change of) liver, not elsewhere classified (principal); R94.5 Abnormal results of liver function studies; D61.818 Other pancytopenia; R16.0 Hepatomegaly, not elsewhere classified; R16.1 Splenomegaly, not elsewhere classified; K21.9 Gastro-esophageal reflux disease without esophagitis; Z90.49 Acquired absence of other specified parts of digestive tract; Z85.038 Personal history of other malignant neoplasm of large intestine; Z98.890 Other specified postprocedural states; Z79.899 Other long term (current) drug therapy

== ENCOUNTER 2020-05-14 02:35 | Emergency (ER) | payer OTHER ==
[~2020-05-14] VITALS: Ht 175.3 cm; Wt 93.0 kg
[2020-05-14] MEDS ORDERED: CIPROFLOXIN HC2.5 M1 OPHTHALMIC (03:01)
[2020-05-14 03:16] VITALS: BP 187/115
== END 2020-05-14 03:19 | disposition home or self-care (01) ==
LOC: M.ERS 02:35
DX: H10.11 Acute atopic conjunctivitis, right eye (principal); K21.9 Gastro-esophageal reflux disease without esophagitis; Z85.038 Personal history of other malignant neoplasm of large intestine; Z90.49 Acquired absence of other specified parts of digestive tract